=== PATIENT | female | born 1970 | race Caucasian/White ===

== ENCOUNTER 2017-12-18 10:41 | Outpatient (CLI) | payer BC ==
[2017-12-18 11:21] LABS: #Eosinphils 0.1 thou/uL (0.0-0.7); #Lymphocytes 1.4 thou/uL (1.20-3.40); #Monocytes 0.5 thou/uL (0.11-0.59); #Neutrophils 3.6 thou/uL (1.40-6.50); %Basophils 0.5 % (0.0-1.0); %Eosinophils 1.2 % (0.0-10.0); %Lymphocytes 24.9 % (21.0-51.0); %Monocytes 8.3 % (0.0-10.0); %Neutrophils 65.1 % (42.0-75.0); Hemoglobin 11.6 g/dL (12.0-16.0); Mean Corpuscular HGB CONC 31.8 g/dL (32.0-36.0); Mean Corpuscular Hemoglobin 27.1 pg (27.0-31.0); Mean Corpuscular Volume 85.3 fl (81.0-99.0); Mean Platelet Volume 8.3 fL (7.4-10.4); Platelet Count 255 thou/uL (130-400); White Blood Cell (WBC) Count 5.5 thou/uL (4.8-10.8)
[2017-12-18 11:51] LABS: BHCG - Serum Negative (NEGATIVE); Pregs Control Background? CLEAR/WHITE (CLR/WHITE); Pregs Control Bar Appear? YES (CONTROL BAR)
== END 2017-12-18 10:42 | disposition home or self-care (01) ==
LOC: LABBT 10:41
PROVIDERS: ATTEND Surgery
DX: Z01.812 Encounter for preprocedural laboratory examination (principal); K64.2 Third degree hemorrhoids
CPT/HCPCS: 84703; 85025

== ENCOUNTER 2017-12-27 11:19 | Day surgery (SDC) | payer BC ==
[2017-12-18 10:59] VITALS: BMI 27.4
[2017-12-27] MEDS ORDERED: cefOXitin 2 GM, Syringe 1 ML in Sterile Water 10 ML SLOW IVP SCH (12:30)
[2017-12-27] MEDS ORDERED: Ondansetron HCl/PF 4 MG/2 ML Vial ONE ×2 (13:12→15:55)
[2017-12-27] MEDS ORDERED: Fentanyl 100 MCG/2 ML VIAL ONE (13:12)
[2017-12-27] MEDS ORDERED: Lidocaine 2% 10 ML INJ ONE (13:14)
[2017-12-27] MEDS ORDERED: Bacitracin Zinc Ointment 30 gm TUBE ONE (13:14)
[2017-12-27] MEDS ORDERED: Bupivacaine/Epinephrine 0.25% 30 ML VIAL ONE (13:14)
--- NOTE | 2017-12-27 14:44 | OP ---
PREOPERATIVE DIAGNOSIS: Grade 4 hemorrhoid with prolapse. SURGEON: Srikanth Drake M.D. PROCEDURE PERFORMED: Hemorrhoidectomy. INDICATIONS: This is a 47-year-old female who has had a large hemorrhoidal skin tag causing difficul ty with hygiene. FINDINGS: Large anterior hemorrhoidal tag. DESCRIPTION OF PROCEDURE: After informed consent was obtained, the patient was taken to the operatin g room and given general mask anesthesia, placed in lithotomy position. Perianal region was prepped and draped in usual fashion. Local anesthesia infiltrated subcutaneously and deep and the tag was ex cised sharply with electrocautery. The skin was reapproximated with interrupted [id number] of 3-0 chromic suture. Bacitracin applied. Sterile bandage applied. The patient tolerated the procedu re well and was transferred to recovery in good condition. Sponge and needle count verified correct x2.
[2017-12-27] MEDS ORDERED: PROPOFOL 200 MG/20 ML VIAL ONE (15:55)
[2017-12-27] MEDS ORDERED: Dexamethasone 20 MG/5 ML VIAL ONE (15:55)
[2017-12-27] MEDS ORDERED: diphenhydrAMINE 50 MG/ML VIAL ONE (15:55)
== END 2017-12-27 16:05 | disposition home or self-care (01) ==
LOC: SDC 11:19
PROVIDERS: ATTEND Surgery
PROC: 065Y0ZC Destruction of Hemorrhoidal Plexus, Open Approach (ICD-10-PCS; principal; 2017-12-27)
DX: K64.2 Third degree hemorrhoids (principal)
CPT/HCPCS: 88304; A4216; J0694; J1100; J1200; J2405; J2704; J3010